=== PATIENT | female | born 1935 | race Two or more races ===

== ENCOUNTER 2017-12-15 12:35 | Emergency (ER) | payer MEDICARE, OTHER ==
[~2017-12-15] VITALS: Ht 160 cm; Wt 65.8 kg
[~2017-12-15 12:35] MED LIST: GLYB1TAB2 PO; INSU100V7 SQ; LORA1TAB PO; METO50TA7 PO; NIFE30TA PO; VALS160T2 PO
--- NOTE | 2017-12-15 12:50 | NUR ---
BB FAMILY FOR RT UPPER QUADRANT ABD PAIN X 3 DAYS, NAUSEA, NAD NOTED, VSS, RESP EVEN AND UNLABORED, PT PUT ON HOSPITAL GOWN AND MONITOR. WAITING FOR MD MCDANIELS.
[2017-12-15] MEDS ORDERED: ONDANSETRON HCL/PF 4 MG/2 ML VIAL IVP ONE (13:00)
[2017-12-15] MEDS ORDERED: ONDANSETRON HCL/PF 4 MG/2 ML VIAL ONE (13:16)
[2017-12-15 13:42] LABS: BASOPHILS # (AUTO) 0.1 /CMM (0.0-0.2); BASOPHILS % (AUTO) 0.5 % (0.0-2.0); EOSINOPHILS # (AUTO) 0.1 /CMM (0.0-0.7); EOSINOPHILS % (AUTO) 0.8 % (0.0-6.0); HEMATOCRIT 42 % (33-45); HEMOGLOBIN 14.8 g/dL (11.5-14.8); LYMPHOCYTES # (AUTO) 1.7 /CMM (0.8-4.8); LYMPHOCYTES % (AUTO) 16.8 % (20.0-44.0); MEAN CORPUSCULAR HEMOGLOBIN 30 PG (26.0-33.0); MEAN CORPUSCULAR HGB CONC 35 g/dl (31.0-36.0); MEAN CORPUSCULAR VOLUME 84 fL (82-100); MONOCYTES # (AUTO) 0.6 /CMM (0.1-1.30); MONOCYTES % (AUTO) 6.2 % (2.0-12.0); NEUTROPHILS # (AUTO) 7.8 /CMM (1.8-8.9); NEUTROPHILS % (AUTO) 75.7 % (43.0-81.0); PLATELET COUNT (AUTO) 448 /CMM (150-450); RDW COEFFICIENT OF VARIATION 11.3 (11.5-15.0); RED BLOOD CELL COUNT(AUTO) 5.01 MIL/uL (4.0-5.2); WHITE BLOOD COUNT (AUTO) 10.3 K/uL (4.3-11.0)
[2017-12-15] MEDS ORDERED: MORPHINE SULFATE INJ 4 MG/ML DISP.SYRIN ONE (13:43)
[2017-12-15 13:50] LABS: CALCIUM, SERUM 9.6 mg/dL (8.5-10.1); CARBON DIOXIDE 27 mmol/L (21-32); CHLORIDE 90 mmol/L (98-107); CREATININE 0.7 mg/dL (0.6-1.3); GLUCOSE 206 mg/dL (74-106); SODIUM SERUM 125 mmol/L (136-145); UREA NITROGEN, BLOOD 13 mg/dL (7-18)
[2017-12-15 13:56] LABS: ALANINE AMINOTRANSFERASE 40 U/L (12-78); ALBUMIN 4.6 g/dL (3.4-5.0); ALKALINE PHOSPHATASE 72 U/L (46-116); ASPARTATE AMINOTRANSFERASE 17 U/L (15-37); BILIRUBIN,DIRECT 0.1 mg/dL (0.0-0.2); BILIRUBIN,TOTAL 0.5 mg/dL (0.2-1.0); LIPASE 160 U/L (73-393); TOTAL PROTEIN, SERUM 8.2 g/dL (6.4-8.2)
[2017-12-15 13:58] LABS: TROPONIN I < 0.017 ng/mL (0.00-0.056)
[2017-12-15] MEDS ORDERED: MORPHINE SULFATE INJ 2 MG/ML DISP.SYRIN IV ONE (14:00)
[2017-12-15 14:04] LABS: INR 0.85 (0.87-1.13)
[2017-12-15 14:08] LABS: APPEARANCE,URINE Clear (CLEAR); BILIRUBIN,URINE Negative (NEGATIVE); BLOOD, URINE Negative Ery/uL (NEGATIVE); COLOR,URINE Yellow (YELLOW); KETONES,URINE Negative (NEGATIVE); LEUKOCYTE ESTERASE ,URINE Negative (NEGATIVE); NITRITE, URINE Negative (NEGATIVE); PH,URINE 8.5 (5.0-8.0); PROTEIN,URINE 30 mg/dl (NEGATIVE); UGLUCOSE Negative (NEGATIVE); UROBILINOGEN,URINE 0.2 EU/dL (0.2)
[2017-12-15] MEDS ORDERED: IOHEXOL-300 100 ML VIAL IV ONE (14:17)
[2017-12-15] MEDS ORDERED: IV NS 0.9% 250 ML IV ONE (14:17)
[2017-12-15 14:18] LABS: BACTERIA,URINE None seen /HPF (None Seen); RBC,URINE 0-2 /HPF (0-2); SQUAMOUS EPITHELIAL CELL,UR Few /HPF (None Seen); WBC,URINE 0-2 /HPF (0-3)
[2017-12-15 16:53] VITALS: BP 115/58
--- NOTE | 2017-12-15 16:56 | NUR ---
Patient discharged to home in stable condition. Written and verbal after care instructions given. Patient verbalizes understanding of instruction.IV removed. Catheter intact and site benign. Pressure and 4x4 applied to site. No bleeding noted.
== END 2017-12-15 16:57 | disposition home or self-care (01) ==
LOC: ER 12:38
DX: R10.11 Right upper quadrant pain (principal); E87.1 Hypo-osmolality and hyponatremia; E87.8 Other disorders of electrolyte and fluid balance, not elsewhere classified; E11.9 Type 2 diabetes mellitus without complications; I10 Essential (primary) hypertension; Z79.4 Long term (current) use of insulin
CPT/HCPCS: 36415; 74160; 80048; 80076; 81001; 83605; 83690; 84484; 85025; 85730; 87040 ×2; 87086; 93005; 96374; 96375; 99285; A4606; J2270; J2405; J7050; Q9967; 81000-TC; Z7610

== ENCOUNTER 2018-02-13 21:53 | Emergency (ER) | payer MEDICARE, OTHER ==
[~2018-02-13] VITALS: Ht 152.4 cm; Wt 65.8 kg
--- NOTE | 2018-02-13 22:10 | NUR ---
TO BED 10AN 82 YO FEMALE PATIENT BIB FAMILY C/O HIGH BLOOD PRESSURE TODAY AND RUQ PAIN X 5 DAYS, +NAUSEA. PATIENT IS AAOX3, NAD NOTED. VSS. SKIN WARM AND DRY. PLACED ON TELE MONITOR. GOWNED. COMFORT MEASURES RENDERED.
--- NOTE | 2018-02-13 22:25 | NUR ---
DR BANSAL AT BEDSIDE TO EVALUATE PATIENT.
[2018-02-13] MEDS ORDERED: ONDANSETRON HCL/PF 4 MG/2 ML VIAL IVP ONE (22:30)
[2018-02-13] MEDS ORDERED: MORPHINE SULFATE INJ 2 MG/ML DISP.SYRIN IV ONE (22:30)
[2018-02-13] MEDS ORDERED: IV NS 0.9% 500 ML BAG IV ONE (22:30)
--- NOTE | 2018-02-13 22:40 | NUR ---
STARTED A SALINE LOCK ON THE LAC G20, BLOOD DRAWN AND SENT TO LAB.
[2018-02-13] MEDS ORDERED: ONDANSETRON HCL/PF 4 MG/2 ML VIAL ONE (22:42)
[2018-02-13] MEDS ORDERED: MORPHINE SULFATE INJ 4 MG/ML DISP.SYRIN ONE (22:42)
--- NOTE | 2018-02-13 22:49 | NUR ---
MEDICATED PATIENT ORDERED BY DR BANSAL.
--- NOTE | 2018-02-13 22:50 | NUR ---
ONGOING ULTRASOUND AT BEDSIDE.
[2018-02-13 23:37] LABS: BASOPHILS # (AUTO) 0.1 /CMM (0.0-0.2); BASOPHILS % (AUTO) 0.4 % (0.0-2.0); EOSINOPHILS # (AUTO) 0.1 /CMM (0.0-0.7); HEMATOCRIT 35 % (33-45); HEMOGLOBIN 12.1 g/dL (11.5-14.8); LYMPHOCYTES # (AUTO) 2.3 /CMM (0.8-4.8); LYMPHOCYTES % (AUTO) 18.6 % (20.0-44.0); MEAN CORPUSCULAR HEMOGLOBIN 29 PG (26.0-33.0); MEAN CORPUSCULAR HGB CONC 34 g/dl (31.0-36.0); MEAN CORPUSCULAR VOLUME 84 fL (82-100); MONOCYTES # (AUTO) 1.1 /CMM (0.1-1.30); MONOCYTES % (AUTO) 8.7 % (2.0-12.0); NEUTROPHILS # (AUTO) 8.7 /CMM (1.8-8.9); NEUTROPHILS % (AUTO) 71.3 % (43.0-81.0); PLATELET COUNT (AUTO) 397 /CMM (150-450); RDW COEFFICIENT OF VARIATION 11.8 (11.5-15.0); RED BLOOD CELL COUNT(AUTO) 4.19 MIL/uL (4.0-5.2); WHITE BLOOD COUNT (AUTO) 12.3 K/uL (4.3-11.0)
[2018-02-13 23:42] LABS: APPEARANCE,URINE CLEAR (CLEAR); BILIRUBIN,URINE NEGATIVE (NEGATIVE); BLOOD, URINE NEGATIVE Ery/uL (NEGATIVE); COLOR,URINE YELLOW (YELLOW); KETONES,URINE NEGATIVE (NEGATIVE); LEUKOCYTE ESTERASE ,URINE NEGATIVE (NEGATIVE); NITRITE, URINE NEGATIVE (NEGATIVE); PH,URINE 8.5 (5.0-8.0); PROTEIN,URINE 1+ mg/dl (NEGATIVE); UGLUCOSE NEGATIVE (NEGATIVE); UROBILINOGEN,URINE 0.2 EU/dL (0.2)
[2018-02-13 23:53] LABS: INR 0.89 (0.87-1.13)
[2018-02-13 23:54] LABS: BACTERIA,URINE None seen /HPF (None Seen); RBC,URINE 0-2 /HPF (0-2); SQUAMOUS EPITHELIAL CELL,UR Few /HPF (None Seen); WBC,URINE 0-2 /HPF (0-3)
[2018-02-13 23:56] LABS: TROPONIN I < 0.017 ng/mL (0.00-0.056)
[2018-02-14 00:01] LABS: CALCIUM, SERUM 8.9 mg/dL (8.5-10.1); CARBON DIOXIDE 27 mmol/L (21-32); CHLORIDE 85 mmol/L (98-107); CREATININE 0.8 mg/dL (0.6-1.3); GLUCOSE 163 mg/dL (74-106); POTASSIUM 3.9 mmol/L (3.5-5.1); SODIUM SERUM 121 mmol/L (136-145); UREA NITROGEN, BLOOD 14 mg/dL (7-18)
[2018-02-14 00:04] LABS: ALANINE AMINOTRANSFERASE 32 U/L (12-78); ALBUMIN 3.9 g/dL (3.4-5.0); ALKALINE PHOSPHATASE 56 U/L (46-116); ASPARTATE AMINOTRANSFERASE 15 U/L (15-37); BILIRUBIN,DIRECT 0.1 mg/dL (0.0-0.2); BILIRUBIN,TOTAL 0.4 mg/dL (0.2-1.0); LIPASE 137 U/L (73-393); TOTAL PROTEIN, SERUM 6.9 g/dL (6.4-8.2)
--- NOTE | 2018-02-14 00:23 | NUR ---
IV removed. Catheter intact and site benign. Pressure and 4x4 applied to site. No bleeding noted.
--- NOTE | 2018-02-14 00:24 | NUR ---
Patient discharged to home in stable condition. Written and verbal after care instructions given. Patient verbalizes understanding of instruction. Patient is ambulatory with steady gait. Instructed patient not to drive. Patient accompanied by family. vss. nad noted. no further complaints.
[2018-02-14 00:25] VITALS: BP 128/74
== END 2018-02-14 00:25 | disposition home or self-care (01) ==
LOC: ER 21:58
DX: K80.20 Calculus of gallbladder without cholecystitis without obstruction (principal); E11.9 Type 2 diabetes mellitus without complications; E87.1 Hypo-osmolality and hyponatremia; I10 Essential (primary) hypertension; I45.10 Unspecified right bundle-branch block; K76.0 Fatty (change of) liver, not elsewhere classified; Z79.4 Long term (current) use of insulin
CPT/HCPCS: 36415; 71045-TC; 76705-TC; 80048-TC; 80076-TC; 81000-TC; 83690-TC; 84484-TC; 85025-TC; 85730-TC; A4606; J2270; J2405; J7040; Z7610

== ENCOUNTER 2018-11-07 22:14 | Inpatient (IN) | payer MEDICARE, OTHER ==
[~2018-11-07] VITALS: Ht 152.4 cm; Wt 66.4 kg
--- NOTE | 2018-11-07 22:35 | NUR ---
[id number] FROM HOME S/P GLF X 3 TODAY C/O L UPPER LEG PAIN. PATIENT D/C FROM [facility] ER TODAY W/DX OF VERTIGO. FAMILY ALSO STATES PT SEEMS ALTERED. AOX3, VSS, RESPIRATIONS EVEN AND UNLABORED. DENIES SOB, DIZZINESS, WEAKNESS. UNABLE TO DESCRIBE PAIN, ABLE TO MOVE LEG AROUND WITHOUT DIFFICULTY. NO OTHER COMPLAINTS AT THIS TIME. READY FOR EVAL.
--- NOTE | 2018-11-07 22:45 | NUR ---
XRAY AND CT COMPLETED
[2018-11-07 22:52] LABS: BASOPHILS % (AUTO) 0.2 % (0.0-2.0); EOSINOPHILS % (AUTO) 0.3 % (0.0-6.0); HEMATOCRIT 39 % (33-45); HEMOGLOBIN 13.1 g/dL (11.5-14.8); LYMPHOCYTES # (AUTO) 1.2 /CMM (0.8-4.8); MEAN CORPUSCULAR HGB CONC 33 g/dl (31.0-36.0); MEAN CORPUSCULAR VOLUME 85 fL (82-100); MONOCYTES # (AUTO) 1.1 /CMM (0.1-1.30); MONOCYTES % (AUTO) 6.2 % (2.0-12.0); NEUTROPHILS # (AUTO) 14.9 /CMM (1.8-8.9); NEUTROPHILS % (AUTO) 86.3 % (43.0-81.0); PLATELET COUNT (AUTO) 337 /CMM (150-450); RED BLOOD CELL COUNT(AUTO) 4.64 MIL/uL (4.0-5.2); WHITE BLOOD COUNT (AUTO) 17.3 K/uL (4.3-11.0)
[2018-11-07 23:02] LABS: CALCIUM, SERUM 8.7 mg/dL (8.5-10.1); CARBON DIOXIDE 30 mmol/L (21-32); CHLORIDE 93 mmol/L (98-107); GLUCOSE 223 mg/dL (74-106); POTASSIUM 3.6 mmol/L (3.5-5.1); SODIUM SERUM 133 mmol/L (136-145)
[2018-11-07 23:20] LABS: UREA NITROGEN, BLOOD 12 mg/dL (7-18)
--- NOTE | 2018-11-07 23:25 | NUR ---
URINE COLLECTED AND SENT TO LAB
[2018-11-07 23:37] LABS: APPEARANCE,URINE CLEAR (CLEAR); BILIRUBIN,URINE NEGATIVE (NEGATIVE); BLOOD, URINE NEGATIVE Ery/uL (NEGATIVE); COLOR,URINE YELLOW (YELLOW); KETONES,URINE NEGATIVE (NEGATIVE); LEUKOCYTE ESTERASE ,URINE TRACE (NEGATIVE); NITRITE, URINE NEGATIVE (NEGATIVE); PH,URINE 7.5 (5.0-8.0); PROTEIN,URINE 2+ mg/dl (NEGATIVE); UGLUCOSE 1+ mg/dL (NEGATIVE); UROBILINOGEN,URINE 0.2 EU/dL (0.2)
[2018-11-07] MEDS ORDERED: ERGO500040 PO (23:51)
[2018-11-07] MEDS ORDERED: AMYL1CAP58 PO (23:51)
[2018-11-07] MEDS ORDERED: ATOR40TA PO (23:51)
[2018-11-07] MEDS ORDERED: LOSA25TA27 PO (23:51)
[2018-11-07] MEDS ORDERED: ONDA4TAB5 PO (23:51)
[2018-11-07] MEDS ORDERED: HYDR-4076 PO (23:51)
[2018-11-07] MEDS ORDERED: MAGN400T6 PO (23:51)
[2018-11-07] MEDS ORDERED: NITR0.4T48 SL (23:51)
[2018-11-07] MEDS ORDERED: RANO500T3 PO (23:51)
[2018-11-07] MEDS ORDERED: ASPI-1169 PO (23:51)
[2018-11-07] MEDS ORDERED: CLOP75TA15 PO (23:51)
[2018-11-07] MEDS ORDERED: PANT40TA4 PO (23:51)
[2018-11-07] MEDS ORDERED: ISOS60TA4 PO (23:51)
[2018-11-07 23:52] LABS: BACTERIA,URINE None seen /HPF (None Seen); RBC,URINE 0-2 /HPF (0-2); WBC,URINE 0-2 /HPF (0-3)
[2018-11-07 23:53] LABS: SQUAMOUS EPITHELIAL CELL,UR Few /HPF (None Seen)
--- NOTE | 2018-11-08 00:03 | NUR ---
Patient is resting comfortably in bed WITH FAMILY AT BEDSIDE. Easily aroused. VSS
[2018-11-08] MEDS ORDERED: MECLIZINE HCL 25 MG TABLET ONE (00:29)
[2018-11-08] MEDS ORDERED: ONDANSETRON HCL/PF 4 MG/2 ML VIAL IVP PRN (00:30)
[2018-11-08] MEDS ORDERED: Z GUARD REMEDY 2 OZ OINT TP PRN (00:30)
[2018-11-08] MEDS ORDERED: MAGNESIUM HYDROXIDE 30 ML UDC PO PRN (00:30)
[2018-11-08] MEDS ORDERED: ACETAMINOPHEN 325 MG TABLET PO PRN (00:30)
[2018-11-08] MEDS ORDERED: IV NS 0.9% 500 ML BAG IV ONE (00:30)
[2018-11-08] MEDS ORDERED: MAG HYDROX/AL HYDROX/SIMETH 30 ML UDC PO PRN (00:30)
[2018-11-08] MEDS ORDERED: MECLIZINE HCL 12.5 MG TABLET PO ONE (00:30)
[2018-11-08] MEDS ORDERED: INSULIN REGULAR, HUMAN 100 UNIT/ML 3 ML VIAL SQ PRN ×4 (01:00→07:30)
[2018-11-08] MEDS ORDERED: DEXTROSE 50%-WATER 50 ML DISP.SYRIN IV PRN ×3 (01:00→07:30)
--- NOTE | 2018-11-08 01:11 | NUR ---
REPORT GIVEN TO JANE MURPHY FOR BED 102
[2018-11-08 01:20] VITALS: BP 123/59
--- NOTE | 2018-11-08 01:25 | NUR ---
PT TRANSFERRED TO [facility]
--- NOTE | 2018-11-08 01:35 | NUR ---
[facility] RN NOTE ADMITTED 82 YEARS OLD FEMALE PT FROM ER WITH THE DX OF SYNCOPE SECONDRY TO UTI BY WASTE OIL PUMPER LAILA. PT IS A/O X 1, CONFUSED. IRANIAN SPEAKING. NO SOB, NO DISTRESS OR DISCOMFORT NOTED. DENIES PAIN. SKIN ASSESSMENT DONE. ON TELE SR HR 82. PICTURES TAKEN AND PLACE THEM IN THE CHART. FAMILY AT BED SIDE. RAC SL # 20 G INTACT AND PATENT. SIDE RAILS UP X 2 AND CALL LIGHT WITHIN REACH. VSS. CONTINUE TO MONITOR HER.
--- NOTE | 2018-11-08 01:40 | NUR ---
[facility] RN NOTE PER DTR PT IS HALLUCINATING AT TIME. ACCORDING TO DTR, PT IS SEEING PEOPLE AND ANIMALS.
[2018-11-08] MEDS ORDERED: CEFTRIAXONE 1 G VIAL ONE ×2 (02:14→02:16)
[2018-11-08] MEDS: CEFTRIAXONE 2 G in IV NS 0.9% 100 ML IV SCH ×2 (02:24→23:49)
[2018-11-08] MEDS: IV NS 0.9% 1,000 ML IV PRN ×2 (02:25→21:06)
[2018-11-08] MEDS ORDERED: NITROGLYCERIN 0.4 MG/TAB BOTTLE SL SCH (02:30)
[2018-11-08] MEDS ORDERED: MECLIZINE HCL 12.5 MG TABLET PO PRN (02:30)
--- NOTE | 2018-11-08 02:37 | NUR ---
[facility] RN NOTE DAMI ULLOA VISITED THE PT.
[2018-11-08] MEDS ORDERED: *INSULIN REGULAR(HUMULIN R)HUM 100 UNIT/ML VIAL SQ PRN (03:00)
[2018-11-08 04:00] VITALS: BP 108/66
--- NOTE | 2018-11-08 04:51 | NUR ---
[facility] RN NOTE PT IN BED VOMITING X 1 GREENISH COLOR SMALL AMOUNT FOR SECRETIONS NOTED. ZOFRAN 4 MG IVP GIVEN FOR N/V. CONTINUE TO MONITOR HER.
[2018-11-08] MEDS ORDERED: MECLIZINE HCL 12.5 MG TABLET PO SCH (05:00)
--- NOTE | 2018-11-08 05:18 | NUR ---
[facility] RN NOTE PT IN BED RESTLESS AND KEPT ON TRY TO CLIMB OUT OF BED. UNABLE TO FOLLOW SAFETY DIRECTIONS. PT IS HIGHLY RISK FOR FALL. DAMI ULLOA CALLED AND RECEIVED A NEW ORDER OF BILATERAL SOFT WRIST RESTRAINT.
--- NOTE | 2018-11-08 05:33 | NUR ---
[facility] RN NOTE REMINDED PHYSICIAN GENERAL PRACTICE PT ON TELE MONITOR SHOWS SR WITH BBB AND ST DEPRESSION, PHYSICIAN GENERAL PRACTICE GAVE NEW ORDER OF STAT EKG AND TROP, WILL FOLLOW UP WITH THE RESULT.
--- NOTE | 2018-11-08 06:00 | NUR ---
[facility] RN NOTE PT IS KICKING THE STAFF AND ALSO TRYING TO SCRATCH.
--- NOTE | 2018-11-08 06:13 | NUR ---
[facility] RN NOTE STAT EKG RESULT GIVEN TO DAMI ULLOA BUT SHE IS ALSO WANT TO KNOW TROPONIN RESULT. WAITING FOR TROPONIN RESULT.
--- NOTE | 2018-11-08 06:20 | NUR ---
[facility] RN NOTE PT IS VERY RESTLESS, PER DTR PT FAINTED AND THEM WAKE UP. PT REMAIN TRYING TO OPEN RESTRAINTS. INFORMED DAMI ULLOA. PER INDUSTRIAL WORKERS LAILA SHE INFORMED DR BROWNE AND ALSO WAITING FOR TROPONIN RESULT. CHARGE NURSE ALSO AWARE OF THE PT CONDITION. WILL RELAY THE TROP LEVEL JUAN AND WILL ENDORSE TO DAY SHIFT NURSE FOR CONTINUE TO MONITOR PT'S CONDITION CLOSELY.
[2018-11-08] MEDS ORDERED: INSULIN GLARGINE HUM REC ANLOG 100 UNIT SQ SCH (07:00)
[2018-11-08] MEDS: ASPIRIN 325 MG TABLET PO SCH ×2 (07:30→08:00)
[2018-11-08] MEDS: ONDANSETRON 4 MG TAB.RAPDIS PO SCH ×4 (07:30→23:49)
[2018-11-08] MEDS ORDERED: BLOOD SUGAR DIAGNOSTIC 1 EACH STRIP VI SCH (07:30)
[2018-11-08] MEDS ORDERED: BLOOD SUGAR DIAGNOSTIC 1 EACH STRIP IN SCH (07:30)
[2018-11-08] MEDS: PANTOPRAZOLE 40 MG TABLET.DR PO SCH (07:30)
--- NOTE | 2018-11-08 07:30 | NUR ---
[facility] RN NOTE: RECEIVED PATIENT IN BED AWAKE, CONFUSED AND VERY RESTLESS. GRANDDAUGHTER PRESENT AT THE BEDSIDE. PATIENT ATTACHED ON GENERAL INTERNAL MEDICINE DOCTOR ST WITH BBB HR= 102. RESPIRATION EVEN AND UNLABORED SATURATING 91% WITH OXYGEN 2L/MIN VIA NC SATURATING 91%. PATIENT KEPT MOVING ON THE BED NOTED WITH (B) SOFT WRIST RESTRAINTS BECAUSE PATIENT WAS TRYING TO GET OUT OF BED AND WAS KICKING HER LEGS UP IN THE AIR. PATIENT'S HOB WAS ON FLAT POSITION PER FAMILY'S REQUEST TO CALM THE PATIENT. (R) AC IV SITE NOTED PATENT INFUSING NS @75ML/HR. PER GRANDDAUGHTER, "I DON'T KNOW WHAT HAPPENED TO HER. SHE WAS MOVING NONSTOP SINCE LAST NIGHT." BED ALARMED AND LOCKED AT ALL TIMES. PADDED SIDERAILS WERE PLACED FOR PROTECTION AND SAFETY. CALL LIGHT WITHIN REACH. NEEDS ANTICIPATED.
--- NOTE | 2018-11-08 07:45 | NUR ---
[facility] RN NOTE: REINALDO, GRANDDAUGHTER VERBALIZED "IF I DO NOT SEE ANY DOCTOR IN 1 HOUR TO SEE MY GRANDMOTHER I WILL COME OUT OF THIS ROOM AND WILL START YELLING OUTSIDE. MY GRANDMOTHER HAS BEEN AGITATED SINCE THE MOMENT WE CAME TO THE ROOM AND NOTHING HAS BEEN DONE. SHE HAS NOT SLEEP FOR 2 DAYS NOW." ASSURED THE GRANDDAUGHTER THAT THE [facility] DOCTOR ASSIGNED TO THE PATIENT WILL BE CONTACTED.
[2018-11-08 08:00] VITALS: BP_SYST 126; BP_SYST 134; BP_DIAS 61; BP_DIAS 83
[2018-11-08] MEDS: DOCUSATE SODIUM 100 MG CAPSULE PO SCH ×2 (08:00→17:00)
[2018-11-08] MEDS: NIFEdipine XL (30MG) 30 MG TAB PO SCH ×2 (08:00→17:00)
[2018-11-08] MEDS: hydrALAZINE HCL 25 MG TABLET PO SCH ×2 (08:00→17:00)
[2018-11-08] MEDS: METOPROLOL SUCCINATE 50 MG TAB.SR.24H PO SCH ×2 (08:00→17:00)
[2018-11-08] MEDS: VALSARTAN 80 MG TABLET PO SCH ×2 (08:00→17:00)
[2018-11-08] MEDS: BLOOD SUGAR DIAGNOSTIC 1 EACH STRIP IN SCH ×4 (08:06→22:06)
--- NOTE | 2018-11-08 08:36 | NUR ---
[facility] RN NOTE: SEEN BY DR. HERNANDEZ AND MADE HIM AWARE THAT THE GRANDDAUGHTER WAS PRESENT AT THE BEDSIDE AND HAS BEEN REQUESTING TO SEE A DOCTOR REGARDING HER GRANDMOTHER'S CONDITION. PATIENT WAS VERY RESTLESS AND CONFUSED. PER DR. HERNANDEZ, OK TO GIVE ATIVAN 1MG IVP X1. ORDER, NOTED AND CARRIED OUT. GRANDDAUGHTER AWARE.
[2018-11-08] MEDS ORDERED: MAGNESIUM OXIDE 400 MG TABLET PO SCH (09:00)
[2018-11-08] MEDS ORDERED: LOSARTAN POTASSIUM 25 MG TABLET PO SCH (09:00)
[2018-11-08] MEDS ORDERED: ATORVASTATIN 40 MG TABLET PO SCH (09:00)
[2018-11-08] MEDS ORDERED: ISOSORBIDE MONONITRATE 20 MG TABLET PO SCH (09:00)
[2018-11-08] MEDS ORDERED: LORAZEPAM INJ 2 MG/ML VIAL IV ONE (09:00)
[2018-11-08] MEDS ORDERED: PANTOPRAZOLE 40 MG TABLET.DR PO SCH (09:00)
--- NOTE | 2018-11-08 09:00 | NUR ---
[facility] RN NOTE: PATIENT WAS NOTED CALM AND QUIET AT THIS TIME. ASLEEP, BUT WAS STILL MOVING HER LEGS. DR. BROWNE, ARMORED CAR DRIVER CAME TO THE UNIT AND WAS INFORMED THAT THE PATIENT WAS GIVEN ATIVAN PER GRANDDAUGHTER, REINALDO'S REQUEST DUE TO THE PATIENT'S AGGRESSIVE BEHAVIOR.
[2018-11-08 12:00] VITALS: BP 137/70
--- NOTE | 2018-11-08 12:00 | NUR ---
[facility] RN NOTE: PATIENT WAS NOT HAVING ANY NAUSEA/VOMITING EPISODE AND SHE WAS ASLEEP. ZOFRAN ODT WAS NOT ADMINISTERED. DR. MCGOWAN AWARE THAT NO PO MEDICATION WAS GIVEN SINCE THIS MORNING.
--- NOTE | 2018-11-08 12:13 | NUR ---
[facility] RN NOTE: DR. MONTEZ, PSYCHIATRIST CAME IN THE UNIT AND ASSESSED THE PATIENT. PATIENT WAS CALM AND QUIET AT THIS TIME. FAMILY REMAINED PRESENT AT THE BEDSIDE. PER DR. MONTEZ, SHE WILL WRITE ORDER FOR THE PATIENT AND MD DISCUSSED THE PLANNED MEDICATION ORDER FOR THE PATIENT AND PER MD THE FAMILY AGREED TO IT.
--- NOTE | 2018-11-08 12:30 | NUR ---
[facility] RN NOTE: CALLED AND PAGED DAMI HANCOCK OF DR. EPPERSON RE: THE CONSULT FOR THE PATIENT. PER ACCOUNT MANAGER RELIEF, DR. EPPERSON WILL COME AND SEE THE PATIENT BY TOMORROW TO DO THE INITIAL ASSESSMENT.
--- NOTE | 2018-11-08 12:40 | NUR ---
[facility] RN NOTE: DR. ERIC MCGOWAN PRESENT AT THE BEDSIDE AND MADE HIM AWARE ABOUT THE PATIENT'S CONDITION THIS MORNING. MD ASSESSED THE PATIENT AND PATIENT WAS CALM AT THIS TIME DUE TO THE ATIVAN ADMINISTRATION THIS MORNING. NO FAMILY MEMBER PRESENT AT THE BEDSIDE RIGHT NOW. MD WITH NO NEW ORDER AT THIS TIME.
[2018-11-08] MEDS: risperiDONE-M 0.5 MG TAB.RAPDIS PO PRN ×2 (14:57→16:13)
[2018-11-08 16:00] VITALS: BP 132/81
--- NOTE | 2018-11-08 16:14 | NUR ---
[facility] RN NOTE: PATIENT WAS AWAKE NOW AND LESS AGITATED. THIS TIME, SHE WAS SPEAKING MORE CLEAR NOW AND GRANDDAUGHTER, REINALDO WAS SAYING THAT SHE WAS MORE COOPERATIVE AT THIS TIME. (B) SOFT WRIST RESTRAINTS WERE REMOVED AND PATIENT WAS NOTED CALM AND QUIET. PATIENT WAS NOTED WITH EPISODES OF BEING AGITATED, GRANDDAUGHTER REINALDO REQUESTED FOR THE RISPERDAL-M TO BE GIVEN TO PREVENT THE ESCALATION OF THE PATIENT'S BEHAVIOR. PATIENT REFUSED TO TAKE IT AND SPIT IT OUT. DR. MONTEZ WAS MADE AWARE.
--- NOTE | 2018-11-08 17:36 | NUR ---
[facility] RN NOTE: PATIENT REFUSED TO TAKE HER PO MEDICATIONS. PATIENT REMAINED CALM AND QUIET AT THIS TIME. WILL CONTINUE TO MONITOR THE PATIENT'S BEHAVIOR AND WILL UPDATE DR. MCGOWAN ABOUT IT. (B) SOFT WRIST RESTRAINTS WERE STILL RELEASED AT THIS TIME. THE GRANDDAUGHTER, REINALDO REMAINED PRESENT AT THE BEDSIDE.
--- NOTE | 2018-11-08 17:50 | NUR ---
[facility] RN NOTE: OFFERED TO THE GRANDDAUGHTER, REINALDO IF IT'S OK TO CHECK HER GRANDMOTHER'S DIAPER IF SHE URINATED AND TO REPOSITION THE PATIENT. PER REINALDO, "LET HER GET SOME REST AND SLEEP FOR NOW." PATIENT WAS ASLEEP AND CALMLY RESTING IN THE BED.
--- NOTE | 2018-11-08 18:04 | NUR ---
[facility] RN NOTE: SPOKE WITH DR. MONTEZ REGARDING THE CONCERN OF REINALDO, GRANDDAUGHTER TO GET AN ORDER FOR A PRN MEDICATION IN CASE THE PATIENT WILL HAVE ANOTHER EPISODE OF SEVERE AGITATION BESIDES THE SUBLINGUAL MEDICATION. WITH ORDER FOR ZYPREXA 2.5MG IM DAILY PRN FOR SEVERE AGITATION IF THE RISPERDAL-M SL IS INEFFECTIVE. REINALDO, GRANDDAUGHTER WAS MADE AWARE AND WAS THANKFUL FOR THE UPDATE.
--- NOTE | 2018-11-08 19:45 | NUR ---
[facility] RN NOTE: REPORT GIVEN TO PM SHIFT NURSE FOR CONTINUITY OF CARE. PM SHIFT NURSE WAS INFORMED OF THE PRN MEDICATIONS ORDERED BY DR. MONTEZ IN CASE THE PATIENT HAS AN EPISODE OF AGITATION AGAIN. (B) SOFT WRIST RESTRAINTS WERE STILL RELEASED AT THIS TIME AND GRANDDAUGHTER, REINALDO REMAINED AT THE BEDSIDE. PATIENT WAS ASLEEP AND QUIET AT THE MOMENT.
[2018-11-08 20:00] VITALS: BP 93/67
[2018-11-08] MEDS ORDERED: OLANZAPINE 10 MG VIAL IM ONE (21:01)
[2018-11-08] MEDS: OLANZAPINE 10 MG VIAL IM PRN (21:06)
[2018-11-08] MEDS ORDERED: LORAZEPAM 1 MG TABLET PO SCH (22:00)
[2018-11-09] VITALS (44 sets, daily range): BP systolic 78–141; BP diastolic 30–97
[2018-11-09] MEDS ORDERED: ACETAMINOPHEN 650 MG/SUPP.RECT RC PRN (00:30)
[2018-11-09 00:54] LABS: CALCIUM, SERUM 7.6 mg/dL (8.5-10.1); CARBON DIOXIDE 21 mmol/L (21-32); CHLORIDE 97 mmol/L (98-107); CREATININE 2.1 mg/dL (0.6-1.3); GLUCOSE 291 mg/dL (74-106); POTASSIUM 3.8 mmol/L (3.5-5.1); SODIUM SERUM 133 mmol/L (136-145); UREA NITROGEN, BLOOD 26 mg/dL (7-18)
[2018-11-09 00:59] LABS: PHOSPHORUS 5.1 mg/dL (2.5-4.9)
[2018-11-09 01:01] LABS: MAGNESIUM 1.2 mg/dL (1.8-2.4)
[2018-11-09] MEDS: Magnesium 1GM/D5W 100ML PREMIX 100 ML IV SCH ×4 (01:47→05:03)
--- NOTE | 2018-11-09 02:28 | NUR ---
infrastructure director laci russell at bedside to assess pt and update family on plan of care. ct scan of head is done, pt has magnesium replacement ongoing. pt is still noted with irregular heart rhythm, frequent pvcs runs of vtach, bp 116/43. pt is altered, not talking to granddaughter. 2nd iv started on right hand 20g. will transfer to icu when available
--- NOTE | 2018-11-09 03:00 | NUR ---
PT TRANSFERRED TO ICU - STILL HAVING ECTOPY, PT IS NOT ALERT, ONLY MAKING INCOMPREHSIBLE NOISES, PT IS ABLE TO MOVE ALL EXTREMITIES, WILL CONTINUE TO MONITOR
[2018-11-09 03:02] LABS: BASOPHILS # (AUTO) 0.1 /CMM (0.0-0.2); BASOPHILS % (AUTO) 0.3 % (0.0-2.0); HEMATOCRIT 37 % (33-45); HEMOGLOBIN 12.1 g/dL (11.5-14.8); LYMPHOCYTES # (AUTO) 1.9 /CMM (0.8-4.8); LYMPHOCYTES % (AUTO) 10.8 % (20.0-44.0); MEAN CORPUSCULAR HGB CONC 33 g/dl (31.0-36.0); MEAN CORPUSCULAR VOLUME 86 fL (82-100); MONOCYTES # (AUTO) 1.3 /CMM (0.1-1.30); MONOCYTES % (AUTO) 7.4 % (2.0-12.0); NEUTROPHILS # (AUTO) 14.3 /CMM (1.8-8.9); NEUTROPHILS % (AUTO) 81.5 % (43.0-81.0); PLATELET COUNT (AUTO) 275 /CMM (150-450); RED BLOOD CELL COUNT(AUTO) 4.26 MIL/uL (4.0-5.2); WHITE BLOOD COUNT (AUTO) 17.6 K/uL (4.3-11.0)
[2018-11-09 03:26] LABS: ALANINE AMINOTRANSFERASE 460 U/L (12-78); ALBUMIN 3.1 g/dL (3.4-5.0); ALKALINE PHOSPHATASE 43 U/L (46-116); ASPARTATE AMINOTRANSFERASE 653 U/L (15-37); BILIRUBIN,TOTAL 0.4 mg/dL (0.2-1.0); CALCIUM, SERUM 8.4 mg/dL (8.5-10.1); CARBON DIOXIDE 22 mmol/L (21-32); CHLORIDE 99 mmol/L (98-107); CREATININE 2.4 mg/dL (0.6-1.3); GLUCOSE 314 mg/dL (74-106); MAGNESIUM 2.1 mg/dL (1.8-2.4); PHOSPHORUS 5.7 mg/dL (2.5-4.9); POTASSIUM 3.6 mmol/L (3.5-5.1); SODIUM SERUM 135 mmol/L (136-145); TOTAL PROTEIN, SERUM 6.3 g/dL (6.4-8.2); UREA NITROGEN, BLOOD 28 mg/dL (7-18)
[2018-11-09 03:30] LABS: CHOLESTEROL 134 mg/dL (<200); HDL CHOLESTEROL 66 mg/dL (40-60); LDL 55 mg/dL (0-99); THYROID STIMULATING HORMONE 1.481 uIU/mL (0.358-3.74); TRIGLYCERIDES 121 mg/dL (30-150)
[2018-11-09] MEDS ORDERED: NOREPINEPHRINE 8 MG in IV D5W 500 ML IV PRN (04:00)
--- NOTE | 2018-11-09 04:00 | NUR ---
MANUAL BP TAKEN 98/40, CORRELATING WITH LEFT FOREARM AUTOMATIC BP CUFF
[2018-11-09] MEDS: HEPARIN INFUSION/D5W 500 ML IV PRN (04:19)
--- NOTE | 2018-11-09 04:20 | NUR ---
HEPARIN DRIP STARTED PER PROTOCOL, BOLUS 5000 UNITS IV GIVEN, HEPARIN DRIP STARTED AT 1000 UNITS PER HOUR, PTT 26, WILL RECHECK PTT AT 1000.
[2018-11-09] MEDS ORDERED: DEXTROSE 50%-WATER 50 ML DISP.SYRIN IV PRN (04:30)
[2018-11-09] MEDS ORDERED: HEPARIN SODIUM, PORCINE 5000 UNITS/1 ML VIAL IV ONE (04:30)
[2018-11-09] MEDS ORDERED: VANCOMYCIN 1 GM in IV D5W 250ml IV ONE (04:30)
[2018-11-09] MEDS ORDERED: VANCOMYCIN 1 GM VIAL ONE (04:34)
[2018-11-09] MEDS: BLOOD SUGAR DIAGNOSTIC 1 EACH STRIP IN SCH ×5 (04:37→21:12)
[2018-11-09] MEDS: INSULIN REGULAR, HUMAN 100 UNIT/ML 3 ML VIAL SQ PRN ×3 (04:38→12:54)
[2018-11-09] MEDS: ONDANSETRON 4 MG TAB.RAPDIS PO SCH ×3 (06:00→17:12)
[2018-11-09] MEDS ORDERED: NOREPINEPHRINE 4 MG/4 ML AMPUL IV ONE (06:04)
[2018-11-09] MEDS ORDERED: PIPERACILLIN /TAZOBACTAM 3.375 G VIAL IV ONE (06:13)
--- NOTE | 2018-11-09 06:15 | NUR ---
SBP 70S-80S AFTER MULTIPLE RECHECKS AND MANUAL BP 78/38. WILL START LEVOPHED PER PROTOCOL
[2018-11-09] MEDS: PIPERACILLIN /TAZOBACTAM 3.375 G in IV D5W 50 ML IV SCH ×4 (06:16→23:04)
[2018-11-09] MEDS ORDERED: IV NS 0.9% 1,000 ML IV STA (06:20)
--- NOTE | 2018-11-09 07:10 | NUR ---
RN NOTES RECEIVED PT ON BED, ALERT BUT NON VERBAL , ON TELE SR HR IN 70'S AT THIS TIME, HEPARIN GTT @1000U/HR AND LEVO AT 2MCG/MIN RUNNING VIA R AC IV SITE G 20, NS AT AT 75CC/HR RUNNING VIA R WIRST G 20 , SITES CLEAN, DRY AND INTACT, SUPPORTIVE FAMILY AT THE BEDSIDE, SR UP x4, CALL LIGHT WITHIN EASY REACH, BED LOCKED AND IN LOWEST POSITION , CONTINUE TO MONITOR.
[2018-11-09] MEDS ORDERED: FEE PK DOSING 1 MIN EA MC ONE (08:36)
[2018-11-09 08:38] LABS: BILIRUBIN,DIRECT 0.1 mg/dL (0.0-0.2)
[2018-11-09] MEDS: hydrALAZINE HCL 25 MG TABLET PO SCH ×2 (09:00→16:32)
[2018-11-09] MEDS: ASPIRIN 325 MG TABLET PO SCH (09:02)
[2018-11-09] MEDS: DOCUSATE SODIUM 100 MG CAPSULE PO SCH ×2 (09:02→16:34)
[2018-11-09] MEDS: PANTOPRAZOLE 40 MG TABLET.DR PO SCH (09:03)
--- NOTE | 2018-11-09 09:53 | NUR ---
WOUND CARE CONSULT: PT PRESENTS WITH BRUISING TO LEFT FOOT, DRY ABRASION TO LEFT ARM AND ULCER TO RT PLANTAR FOOT, PRESENT ON ADMISSION. RECOMMEND DPM CONSULT. ALL SKIN PROTECTION RECOMMENDATIONS DISCUSSED WITH NURSING STAFF. PT ON ALIDA ISOFLEX LOW AIRLOSS BED. WILL SEE PRN. GANN IN AGREEMENT WITH PLAN OF CARE. CURRENT NELSON SCORE IS 16. Addendum: 11/09/18 at 0955 by RUSTAM COSBY WNDNU Amended: Links added.
[2018-11-09] MEDS ORDERED: LORAZEPAM 1 MG TABLET PO PRN (10:30)
[2018-11-09 12:46] LABS: ABG BASE EXCESS -6.7 mmol/L; ABG OXYGEN SATURATION 92.4 % (92.0-98.5); ABG PCO2 29.1 mmHg (35.0-45.0); ABG PH 7.387 (7.350-7.450); ABG PO2 75.8 mmHg (75.0-100.0); AaDO2 204.8 mmHg; COHb 0.1 % (0.5-1.5); MetHb 0.3 % (0.0-1.5); SITE, ABG Right Radial; VENT MODE, BG Nasal Cannula
--- NOTE | 2018-11-09 13:00 | NUR ---
RN NOTES DR BROWNE NOTIFED REGRADING TROPONIN 46.226 , NO NEW ORDER RECEIVED , CONTINUE TO MONITOR .
--- NOTE | 2018-11-09 13:10 | NUR ---
RN NOTES DR MCGOWAN NOTIFED REGARDING LA 2.6 AND TROPONIN OF 46.226 , NO NEW ORDER RECEIVED, PT STABLE , CONTINUE TO MONITOR .
[2018-11-09 13:52] LABS: BASOPHILS # (AUTO) 0.1 /CMM (0.0-0.2); BASOPHILS % (AUTO) 0.4 % (0.0-2.0); EOSINOPHILS % (AUTO) 0.3 % (0.0-6.0); HEMATOCRIT 34 % (33-45); HEMOGLOBIN 11.5 g/dL (11.5-14.8); LYMPHOCYTES # (AUTO) 1.9 /CMM (0.8-4.8); LYMPHOCYTES % (AUTO) 10.7 % (20.0-44.0); MEAN CORPUSCULAR HGB CONC 34 g/dl (31.0-36.0); MEAN CORPUSCULAR VOLUME 85 fL (82-100); MONOCYTES % (AUTO) 5.5 % (2.0-12.0); NEUTROPHILS # (AUTO) 14.6 /CMM (1.8-8.9); NEUTROPHILS % (AUTO) 83.1 % (43.0-81.0); PLATELET COUNT (AUTO) 243 /CMM (150-450); RED BLOOD CELL COUNT(AUTO) 4.02 MIL/uL (4.0-5.2); WHITE BLOOD COUNT (AUTO) 17.6 K/uL (4.3-11.0)
--- NOTE | 2018-11-09 14:00 | NUR ---
RN NOTES DR MCGOWAN NOTIFED REGARDING NA 133 AND K= 3.1 , NO NEW ORDER RECEIVED .
[2018-11-09 14:09] LABS: ALANINE AMINOTRANSFERASE 432 U/L (12-78); ALBUMIN 2.8 g/dL (3.4-5.0); ALKALINE PHOSPHATASE 44 U/L (46-116); ASPARTATE AMINOTRANSFERASE 569 U/L (15-37); BILIRUBIN,TOTAL 0.5 mg/dL (0.2-1.0); CALCIUM, SERUM 7.6 mg/dL (8.5-10.1); CARBON DIOXIDE 21 mmol/L (21-32); CHLORIDE 98 mmol/L (98-107); CREATININE 1.9 mg/dL (0.6-1.3); GLUCOSE 207 mg/dL (74-106); MAGNESIUM 2.5 mg/dL (1.8-2.4); PHOSPHORUS 4.1 mg/dL (2.5-4.9); POTASSIUM 3.1 mmol/L (3.5-5.1); SODIUM SERUM 133 mmol/L (136-145); TOTAL PROTEIN, SERUM 5.9 g/dL (6.4-8.2); UREA NITROGEN, BLOOD 30 mg/dL (7-18)
[2018-11-09] MEDS: risperiDONE-M 0.5 MG TAB.RAPDIS PO PRN ×2 (15:42→21:37)
[2018-11-09] MEDS ORDERED: ALBUTEROL HALF STRENGTH 1.25 MG/3 ML VIAL.NEB NEB PRN (16:00)
[2018-11-09] MEDS ORDERED: FUROSEMIDE 20 MG/2 ML VIAL IV ONE (16:00)
--- NOTE | 2018-11-09 16:00 | NUR ---
RN NOTES MEDICAL RECORD OBTAINED FROM [facility] AND PLACED IN THE CHART PER MD ORDER .
--- NOTE | 2018-11-09 16:00 | NUR ---
RN NOTES PT C/O SOB , O2 SAT 92% , DR LOPEZ NOTIFED, NEW ORDER RECEIVED FOR BREATHING TX .
--- NOTE | 2018-11-09 17:00 | NUR ---
RN NOTES PT AT REST , NO DISTRESS NOTED, RESPIRATION EVEN AND UNLABORED, O2 SAT 93%, CONTINUE TO MONITOR.
--- NOTE | 2018-11-09 18:45 | NUR ---
RN NOTES PT AT REST , SUPPORTIVE FAMILY AT THE BEDSIDE, HEPARIN GTT AT 1000U/HR RUNNING VIA R AC IV SITE, NO DISTESS NOTED, WILL ENDOSE TO ADVERTISING ASSISTANT MANAGER NURSE FOR CONTINUITY OF CARE .
--- NOTE | 2018-11-09 19:30 | NUR ---
RN/NOTES: RECEIVED PT. IN BED W/ HOB ELEVATED. W/ O2 @ 6LPM VIA N/C SAT 93%. PT. N/C OUT OF THE NOSE. PT. HAS A TENDENCY TO PULL OUT HER N/C. REINSERTED BACK THE N/C. PT. SPEAKS CANADIAN. NO S/S OF ANY RESPIRATORY DISTRESS. NO FACIAL GRIMACES OR MOANING NOTED. W/ IVF ON RAC G 20 PATENT AND INTACT W/ NO S/S OF INFECTION/INFILTRATION NOTED. INCONTINENT OF B/B. RT. FOOT DRESSING INTACT AND ELEVATED ON PILLOWS. W/ HEPARIN DRIP W/ 1000 UNITS/HR /20 CC/HR. CALL LIGHT W/REACH. WILL CONTINUE TO MONITOR.
[2018-11-09] MEDS: IV NS 0.9% 1,000 ML IV PRN (19:42)
--- NOTE | 2018-11-09 20:15 | NUR ---
RN/NOTES: PT.'S GRANDDAUGHTER W/ TWO OTHER FRIENDS CAME IN. FRIENDS GOT PISSED OFF AT THE PARLIAMENTARY ARCHIVIST SAYING THAT PT. IS CALLING FOR HELP AND NO BODY IS COMING. CHARGE NURSE WENT AND SPOKE TO PT. PUBLIC HEALTH TECHNOLOGIST WENT IN AND EXPLAINED TO THE FRIENDS AND FAMILY THAT WE WERE THERE. AND PT. DID NOT CALL WITH THE CALL LIGHT. PT. IS [place] SPEAKING AND PUBLIC HEALTH TECHNOLOGIST DID NOT UNDERSTAND. PT. GRANDDAUGHTER STAYING W/ PT. PT. IS ALERT AND ORIENTED X 2-3 IN [place] LANGUAGE. PT. RECOGNIZES FAMILY AND HAVING CONVERSATION. WILL CONTINUE TO MONITOR.
[2018-11-09] MEDS: DOXYCYCLINE 100 MG in IV NS 0.9% 100 ML IV SCH (20:49)
[2018-11-09] MEDS: HYDROCODONE/APAP 5/325MG 1 EACH TABLET PO PRN (20:49)
--- NOTE | 2018-11-09 20:50 | NUR ---
RN/NOTES: PER GRAND DAUGHTER PT. IS C/O PAIN IN RIGHT FOOT. PRN GIVEN W/ GOOD RELIEF.
--- NOTE | 2018-11-09 21:15 | NUR ---
RN/NOTES: CHANGED PT. POSITION W/ HELP OF CHARGE NURSE.
--- NOTE | 2018-11-09 21:40 | NUR ---
RN/NOTES: PT. SEEMS AGITATED PER GRAND DAUGHTER AND WANTS SOMETHING TO RELAX HER. PRN GIVEN.
--- NOTE | 2018-11-09 23:00 | NUR ---
RN/NOTES: PT. GRAND SON BY BEDSIDE. CHANGED PT. LINEN AND DIAPER.
[2018-11-10] VITALS (27 sets, daily range): BP systolic 49–139; BP diastolic 21–94
[2018-11-10] MEDS: ONDANSETRON 4 MG TAB.RAPDIS PO SCH ×4 (00:58→18:19)
[2018-11-10] MEDS: BLOOD SUGAR DIAGNOSTIC 1 EACH STRIP IN SCH ×6 (01:06→21:16)
[2018-11-10] MEDS: INSULIN REGULAR, HUMAN 100 UNIT/ML 3 ML VIAL SQ PRN ×6 (01:07→21:27)
[2018-11-10] MEDS: HEPARIN INFUSION/D5W 500 ML IV PRN (04:11)
--- NOTE | 2018-11-10 04:20 | NUR ---
RN/NOTES: CHANGED PT. POSITION AND DIAPER. GAVE WATER.
[2018-11-10 05:09] LABS: BASOPHILS # (AUTO) 0.1 /CMM (0.0-0.2); BASOPHILS % (AUTO) 0.5 % (0.0-2.0); EOSINOPHILS % (AUTO) 0.4 % (0.0-6.0); HEMATOCRIT 34 % (33-45); LYMPHOCYTES # (AUTO) 1.6 /CMM (0.8-4.8); LYMPHOCYTES % (AUTO) 9.3 % (20.0-44.0); MEAN CORPUSCULAR HGB CONC 33 g/dl (31.0-36.0); MEAN CORPUSCULAR VOLUME 86 fL (82-100); MONOCYTES # (AUTO) 1.3 /CMM (0.1-1.30); MONOCYTES % (AUTO) 7.6 % (2.0-12.0); NEUTROPHILS # (AUTO) 13.9 /CMM (1.8-8.9); NEUTROPHILS % (AUTO) 82.2 % (43.0-81.0); PLATELET COUNT (AUTO) 246 /CMM (150-450); RED BLOOD CELL COUNT(AUTO) 3.92 MIL/uL (4.0-5.2)
[2018-11-10 05:20] LABS: CALCIUM, SERUM 7.7 mg/dL (8.5-10.1); CARBON DIOXIDE 24 mmol/L (21-32); CHLORIDE 97 mmol/L (98-107); CREATININE 1.3 mg/dL (0.6-1.3); GLUCOSE 204 mg/dL (74-106); POTASSIUM 3.2 mmol/L (3.5-5.1); SODIUM SERUM 134 mmol/L (136-145); UREA NITROGEN, BLOOD 24 mg/dL (7-18)
[2018-11-10 05:25] LABS: ALANINE AMINOTRANSFERASE 393 U/L (12-78); ALBUMIN 2.7 g/dL (3.4-5.0); ALKALINE PHOSPHATASE 47 U/L (46-116); ASPARTATE AMINOTRANSFERASE 325 U/L (15-37); BILIRUBIN,TOTAL 0.7 mg/dL (0.2-1.0); PHOSPHORUS 3.1 mg/dL (2.5-4.9); TOTAL PROTEIN, SERUM 5.8 g/dL (6.4-8.2)
[2018-11-10] MEDS: PIPERACILLIN /TAZOBACTAM 3.375 G in IV D5W 50 ML IV SCH ×3 (05:44→17:26)
[2018-11-10] MEDS: HYDROCODONE/APAP 5/325MG 1 EACH TABLET PO PRN (05:47)
--- NOTE | 2018-11-10 06:20 | NUR ---
RN/NOTES: LAB CALLED CRITICAL VALUE OF TROPONIN IS 31.526. TRENDING DOWN FROM 46.226
--- NOTE | 2018-11-10 06:30 | NUR ---
RN/ NOTES: DRESSING DONE ON RIGHT FOOT.
--- NOTE | 2018-11-10 07:30 | NUR ---
[facility] RN NOTE: RECEIVED PATIENT IN BED, AWAKE WITH INTERMITTENT CONFUSION AND VERBALLY RESPONSIVE. PATIENT WAS CALM, QUIET AND COOPERATIVE. REINALDO, GRANDDAUGHTER PRESENT AT THE BEDSIDE. HOB ELEVATED. (R) AC IV SITE WAS PATENT AND INTACT WITH HEPARIN DRIP INFUSING PER PROTOCOL. (L) FOREARM IV SITE INTACT AND PATENT. PATIENT DENIED ANY PAIN. CALL LIGHT WITHIN REACH. NEEDS ANTICIPATED.
--- NOTE | 2018-11-10 07:42 | NUR ---
RN/NOTES: REPORT GIVEN TO NEXT SHIFT NURSE FOR MAUREEN.
[2018-11-10] MEDS: FUROSEMIDE 40 MG/4 ML VIAL IV SCH ×2 (08:41→11:49)
[2018-11-10] MEDS: POTASSIUM CHLORIDE 20 MEQ TAB.PRT.SR PO SCH ×3 (08:41→10:58)
[2018-11-10] MEDS: PANTOPRAZOLE 40 MG TABLET.DR PO SCH (08:48)
[2018-11-10] MEDS: DOCUSATE SODIUM 100 MG CAPSULE PO SCH ×2 (09:00→17:00)
[2018-11-10] MEDS: hydrALAZINE HCL 25 MG TABLET PO SCH ×2 (09:00→17:00)
[2018-11-10] MEDS: ASPIRIN 325 MG TABLET PO SCH (09:42)
[2018-11-10] MEDS: DOXYCYCLINE 100 MG in IV NS 0.9% 100 ML IV SCH ×2 (09:42→21:03)
[2018-11-10] MEDS: DAKINS QUARTER STRENGTH (0.125%) 480 ML BOTTLE TOP SCH (09:54)
[2018-11-10] MEDS: NEOMY SULF/BACITRAC ZN/POLY 15 GM TUBE TP SCH (10:02)
--- NOTE | 2018-11-10 10:40 | NUR ---
[facility] RN NOTE: PATIENT WAS SEEN BY DAMI HANCOCK OF DR. EPPERSON (NEUROLOGIST) AND THE GRANDDAUGHTER REINALDO WAS ABLE TO SPEAK WITH HER. NO ORDER AT THIS TIME.
[2018-11-10] MEDS ORDERED: VANCOMYCIN 1 GM in IV D5W 250 ML IV SCH ×2 (14:00→16:00)
[2018-11-10] MEDS ORDERED: FUROSEMIDE 40 MG/4 ML VIAL IV ONE ×2 (14:30→18:00)
--- NOTE | 2018-11-10 14:36 | NUR ---
[facility] RN NOTE: CALLED AND SPOKE WITH FLORENCIO PHARMACIST AND MADE HER AWARE THAT THE PATIENT'S LASIX ORDER PER DR. LOPEZ STATED "DOSE AT 1800" AND MEDICATION WAS SCHEDULED AT 1430. PER FLORENCIO, SHE WILL FIX THE MEDICATION ORDER. CLARIFIED WITH DR. LOPEZ ABOUT HIS ORDER AND HE STATED LASIX TO BE ADMINISTER AT 1800. FLORENCIO WAS MADE AWARE.
--- NOTE | 2018-11-10 15:19 | NUR ---
[facility] RN NOTE: RECEIVED A CALL FROM LAB RE: THE TROPONIN LEVEL AND DR. MCGOWAN WAS MADE AWARE ABOUT IT. MD AWARE THAT PATIENT WAS CURRENTLY ON HEPARIN DRIP PER PROTOCOL AND PER MD PATIENT WAS OK TO TRANSFER TO [facility]. CHARGE NURSE IRENE AWARE.
--- NOTE | 2018-11-10 17:30 | NUR ---
[facility] RN NOTE: BEDSIDE REPORT WAS GIVEN TO [facility] UNDERWOOD RN AND PATIENT WAS REMAINED ON HEPARIN DRIP PER PROTOCOL. PER TIME CYCLE OPERATOR MELANIE, PATIENT WILL BE KEPT IN [facility] AND WILL FOLLOW-UP AGAIN BY TOMORROW ONCE BED IS AVAILABLE IN [place] PER PATIENT'S CLIP ON SUNGLASSES ASSEMBLER REQUEST. [facility] UDNERWOOD RN WAS ALSO MADE AWARE THAT THE PTT WAS NOT DRAWN AT 1600 BECAUSE THE RECONNAISSANCE MAN WAS UNABLE TO DRAW THE BLOOD AND WILL SEND A DIFFERENT RECONNAISSANCE MAN TO DRAW THE BLOOD. PATIENT REMAINED ON STABLE CONDITION. ALL BELONGINGS OF THE PATIENT WAS BROUGHT HOME BY HER GRANDDAUGHTER, REINALDO AND THE UPPER AND LOWER DENTURES WERE WITH THE PATIENT.
--- NOTE | 2018-11-10 18:05 | NUR ---
[facility] RN NOTE RECEIVED PATIENT AT 17:50 ACCOMPANIED BY ICU NURSES. CONNECTED TO EXTERNAL VOLUNTEER FIREFIGHTER, SINUS RHYTHM IN THE HIGH 90S AND SINUS TACHYCARDIA RANGING BETWEEN 101 AND 109 ON THE MONITOR. VITAL SIGNS STABLE, PATIENT CALM AND COOPERATIVE, MALTESE SPEAKING, FAMILY AT BEDSIDE. ON O2 VIA NASAL CANNULA AT 6LPM. NO RESPIRATORY DISTRESS NOTED. ON IV HEPARIN DRIP PER PROTOCOL, IV SITES INTACT. BED IN LOW LOCKED POSITION, ALARM ON, WILL CONTINUE TO MONITOR CLOSELY.
--- NOTE | 2018-11-10 19:26 | NUR ---
MED NOTE: ALL PINK ONCE STK MEDS REMOVED FROM PT EMAR FOR PT SAFETY.
--- NOTE | 2018-11-10 19:36 | NUR ---
[facility] RN NOTE PATIENT RESTING IN BED IN STABLE CONDITION, FAMILY AT BEDSIDE. NO CHANGES IN CONDITION SINCE RECEIVING PATIENT AT 17:50. REPORT GIVEN TO INFORMATION TECHNOLOGY PROJECT MANAGER NURSE FOR CONTINUITY OF CARE.
[2018-11-10] MEDS: risperiDONE-M 0.5 MG TAB.RAPDIS PO SCH (21:00)
[2018-11-10] MEDS: ACETAMINOPHEN 325 MG TABLET PO PRN (21:26)
[2018-11-10] MEDS ORDERED: OLANZAPINE 10 MG VIAL IM ONE (23:09)
[2018-11-10] MEDS: OLANZAPINE 10 MG VIAL IM PRN (23:15)
[2018-11-11] VITALS: BP 105/45
[2018-11-11] MEDS: PIPERACILLIN /TAZOBACTAM 3.375 G in IV D5W 50 ML IV SCH ×3 (00:05→11:35)
[2018-11-11] MEDS: BLOOD SUGAR DIAGNOSTIC 1 EACH STRIP IN SCH ×6 (01:08→21:11)
[2018-11-11] MEDS: INSULIN REGULAR, HUMAN 100 UNIT/ML 3 ML VIAL SQ PRN ×4 (01:10→17:42)
--- NOTE | 2018-11-11 01:44 | NUR ---
TELE-TD/MARKET DEVELOPMENT SPECIALIST PTT RESULT 50 NO CHANGE IN HEPARIN GTT. PTT ORDERED ROUTINE WITH AM LABS.
[2018-11-11] MEDS: HEPARIN INFUSION/D5W 500 ML IV PRN (03:17)
[2018-11-11 04:00] VITALS: BP 139/52
[2018-11-11] MEDS: ONDANSETRON 4 MG TAB.RAPDIS PO SCH ×4 (06:00→17:16)
--- NOTE | 2018-11-11 06:08 | NUR ---
TELE-TD/GAS SCRUBBER OPERATOR POC BLOOD GLUCOSE 141 PT GRANDDAUGHTER AT BEDSIDE DECLINING SS COVERAGE AT THIS TIME. RISKS AND BENEFITS EXPLAINED. WILL CONTINUE TO MONITOR.
[2018-11-11 06:51] LABS: BASOPHILS % (AUTO) 0.3 % (0.0-2.0); EOSINOPHILS % (AUTO) 1.7 % (0.0-6.0); HEMATOCRIT 33 % (33-45); LYMPHOCYTES # (AUTO) 1.4 /CMM (0.8-4.8); LYMPHOCYTES % (AUTO) 11.9 % (20.0-44.0); MEAN CORPUSCULAR HGB CONC 33 g/dl (31.0-36.0); MEAN CORPUSCULAR VOLUME 84 fL (82-100); MONOCYTES % (AUTO) 8.7 % (2.0-12.0); NEUTROPHILS # (AUTO) 9.1 /CMM (1.8-8.9); NEUTROPHILS % (AUTO) 77.4 % (43.0-81.0); PLATELET COUNT (AUTO) 276 /CMM (150-450); WHITE BLOOD COUNT (AUTO) 11.8 K/uL (4.3-11.0)
--- NOTE | 2018-11-11 06:55 | NUR ---
TELE-TD/TELEPRINTER MULTIPLE ATTEMPTS TO PLACE A SECOND IV LINE HAVE BEEN MADE. PT IS VERY HARD STICK. DR. WALTERS MADE AWARE. I WILL ENDORSE 0600 ZOSYN TO NEXT SHIFT AND RECOMMEND MIDLINE PLACEMENT. GRANDDAUGHTER AT BEDSIDE. WILL CONTINUE TO MONITOR.
[2018-11-11 07:08] LABS: ALANINE AMINOTRANSFERASE 408 U/L (12-78); ALBUMIN 2.7 g/dL (3.4-5.0); ALKALINE PHOSPHATASE 48 U/L (46-116); ASPARTATE AMINOTRANSFERASE 191 U/L (15-37); BILIRUBIN,TOTAL 0.8 mg/dL (0.2-1.0); CALCIUM, SERUM 7.6 mg/dL (8.5-10.1); CARBON DIOXIDE 28 mmol/L (21-32); CHLORIDE 97 mmol/L (98-107); CREATININE 1.2 mg/dL (0.6-1.3); GLUCOSE 126 mg/dL (74-106); MAGNESIUM 1.4 mg/dL (1.8-2.4); PHOSPHORUS 2.1 mg/dL (2.5-4.9); SODIUM SERUM 135 mmol/L (136-145); TOTAL PROTEIN, SERUM 6.1 g/dL (6.4-8.2); UREA NITROGEN, BLOOD 19 mg/dL (7-18)
[2018-11-11 07:16] LABS: POTASSIUM 2.8 mmol/L (3.5-5.1)
[2018-11-11] MEDS: PANTOPRAZOLE 40 MG TABLET.DR PO SCH (07:30)
[2018-11-11 08:00] VITALS: BP 105/87
[2018-11-11] MEDS: hydrALAZINE HCL 25 MG TABLET PO SCH ×2 (08:20→17:00)
[2018-11-11] MEDS: NEOMY SULF/BACITRAC ZN/POLY 15 GM TUBE TP SCH (08:24)
[2018-11-11] MEDS: DAKINS QUARTER STRENGTH (0.125%) 480 ML BOTTLE TOP SCH (08:24)
[2018-11-11] MEDS: DOCUSATE SODIUM 100 MG CAPSULE PO SCH ×2 (08:33→17:00)
[2018-11-11] MEDS: ASPIRIN 325 MG TABLET PO SCH (08:33)
[2018-11-11] MEDS: risperiDONE-M 0.5 MG TAB.RAPDIS PO SCH ×2 (08:34→21:00)
[2018-11-11] MEDS ORDERED: ENOXAPARIN SODIUM 40 MG/0.4 ML DISP.SYRIN SQ SCH (10:00)
[2018-11-11] MEDS ORDERED: POTASSIUM CHLORIDE 10 MEQ/50 ML PREMIXED IVPB FOR PERIPHERAL LINE IV SCH (10:00)
[2018-11-11] MEDS ORDERED: POTASSIUM CHLORIDE 20 MEQ TAB.PRT.SR PO SCH (10:00)
[2018-11-11] MEDS: DOXYCYCLINE 100 MG in IV NS 0.9% 100 ML IV SCH ×2 (10:11→21:06)
[2018-11-11] MEDS: Magnesium 1GM/D5W 100ML PREMIX 100 ML IV SCH ×2 (10:25→12:33)
[2018-11-11] MEDS: ENOXAPARIN SODIUM 30 MG/0.3 ML DISP.SYRIN SQ SCH (10:30)
[2018-11-11 12:00] VITALS: BP 115/67
[2018-11-11] MEDS: POTASSIUM CL. PREMIX PERIPHER. 50 ML IV SCH ×7 (12:35→20:15)
[2018-11-11] MEDS ORDERED: OLANZAPINE 10 MG VIAL IM PRN (13:00)
[2018-11-11] MEDS ORDERED: CEFTRIAXONE 1 G in IV D5W 50 ML IV SCH (14:00)
[2018-11-11] MEDS ORDERED: K PHOS NEUTRAL 250 MG TABLET PO ONE (15:00)
[2018-11-11] MEDS ORDERED: Sodium Phosphate 15 MMOL in IV D5W 250 ML IV ONE (15:30)
[2018-11-11 16:00] VITALS: BP 139/70
[2018-11-11] MEDS ORDERED: POTASSIUM PHOSPHATE MM 7.5 MMOL in IV D5W 100 ML IV SCH (16:00)
--- NOTE | 2018-11-11 16:00 | NUR ---
rn note potassium phosphate is not given yet due to potassium chloride is infusing at this time, pharmcay is aware and okay to postpone it and endorse to general labor forklift operator.
[2018-11-11] MEDS: FUROSEMIDE 100 MG/10 ML VIAL IV SCH ×2 (16:43→20:46)
[2018-11-11] MEDS: LACTOBACILLUS RHAMNOSUS GG 1 EACH CAP.SPRINK PO SCH (17:00)
[2018-11-11 19:14] LABS: APPEARANCE,URINE CLEAR (CLEAR); BILIRUBIN,URINE NEGATIVE (NEGATIVE); BLOOD, URINE NEGATIVE Ery/uL (NEGATIVE); COLOR,URINE YELLOW (YELLOW); KETONES,URINE NEGATIVE (NEGATIVE); LEUKOCYTE ESTERASE ,URINE NEGATIVE (NEGATIVE); NITRITE, URINE NEGATIVE (NEGATIVE); PH,URINE 5.5 (5.0-8.0); PROTEIN,URINE NEGATIVE (NEGATIVE); UGLUCOSE NEGATIVE (NEGATIVE); UROBILINOGEN,URINE 0.2 EU/dL (0.2)
[2018-11-11 20:00] VITALS: BP 133/67
--- NOTE | 2018-11-11 20:18 | NUR ---
MED NOTE: SPOKE WITH PHARM ABOUT SCHEDULING OF KCL AND KPHOS REPLACEMENT. TIMING MAY BE OFF FROM [facility]. OK BY PHARM TO MANUAL BARCODE IF NEED BE.
[2018-11-11] MEDS: POTASSIUM PHOSPHATE MM 7.5 MMOL in IV D5W 100 ML IV SCH (21:07)
--- NOTE | 2018-11-11 21:19 | NUR ---
MED NOTE: PT POC GLUCOSE 188 GRANDDAUGHTER DECLINING SS COVERAGE AT THIS TIME.
[2018-11-11] MEDS: ACETAMINOPHEN 325 MG TABLET PO PRN (23:13)
[2018-11-12] VITALS: BP 107/67
[2018-11-12] MEDS: POTASSIUM CL. PREMIX PERIPHER. 50 ML IV SCH ×3 (00:16→06:32)
[2018-11-12] MEDS: FUROSEMIDE 100 MG/10 ML VIAL IV SCH (00:19)
[2018-11-12] MEDS: BLOOD SUGAR DIAGNOSTIC 1 EACH STRIP IN SCH ×3 (00:55→11:22)
[2018-11-12] MEDS: INSULIN REGULAR, HUMAN 100 UNIT/ML 3 ML VIAL SQ PRN ×2 (01:00→06:38)
[2018-11-12] MEDS: POTASSIUM PHOSPHATE MM 7.5 MMOL in IV D5W 100 ML IV SCH (01:21)
[2018-11-12 04:00] VITALS: BP 98/39
[2018-11-12] MEDS: ONDANSETRON 4 MG TAB.RAPDIS PO SCH ×2 (06:00)
--- NOTE | 2018-11-12 06:40 | NUR ---
TELE-TD/RADAR MECHANIC PT FAMILY DECLINING ALL LAB DRAWS. THEY ANTICIPATE TRANSFER TO ANOTHER FACILITY THIS MORNING
--- NOTE | 2018-11-12 07:00 | NUR ---
PORTABLE TRACK CREW CHIEF/[facility] OPENING NOTES REPORT GIVEN BY NOC NURSE. PATIENT AWAKE IN BED A/O X3 HAITIAN SPEAKING GRAND DAUGHTER AT BEDSIDE NO SIGNS OR SYMPTOMS OF RESPIRATORY DISTRESS ON 6 LTRS N/C. C/O GENERAL DISCOMFORT TYLENOL GIVEN PER GD REQUEST. IVF TKO RUNNING IN (R) FA #20 GAUGE. POSSIBLE D/C TO [facility] PER REPORT SAFETY PRECAUTIONS IN PLACE BED IN LOW POSITION CALL LIGHT WITHIN REACH MAUREEN
[2018-11-12] MEDS: ACETAMINOPHEN 325 MG TABLET PO PRN (07:45)
[2018-11-12] MEDS: PANTOPRAZOLE 40 MG TABLET.DR PO SCH (07:45)
[2018-11-12 08:00] VITALS: BP 120/42
[2018-11-12 09:00] VITALS: BP 120/42
[2018-11-12] MEDS: risperiDONE-M 0.5 MG TAB.RAPDIS PO SCH (09:00)
[2018-11-12] MEDS: ASPIRIN 325 MG TABLET PO SCH (09:00)
[2018-11-12] MEDS: hydrALAZINE HCL 25 MG TABLET PO SCH (09:00)
[2018-11-12] MEDS ORDERED: ERGOCALCIFEROL (VITAMIN D 2) 50,000 UNIT CAPSULE PO SCH (09:00)
[2018-11-12] MEDS: LACTOBACILLUS RHAMNOSUS GG 1 EACH CAP.SPRINK PO SCH (09:00)
[2018-11-12] MEDS: DAKINS QUARTER STRENGTH (0.125%) 480 ML BOTTLE TOP SCH (09:00)
[2018-11-12] MEDS: DOXYCYCLINE 100 MG in IV NS 0.9% 100 ML IV SCH (09:00)
[2018-11-12] MEDS: DOCUSATE SODIUM 100 MG CAPSULE PO SCH (09:00)
--- NOTE | 2018-11-12 09:00 | NUR ---
RN [facility] NOTES PATIENT REFUSED LABS PER NOC SHIFT CALL ED TO GIVE REPORT TO OLIVE NICOLAS OPHTHALMIC NURSE. CANNOT TRANSFER UNTIL LABS DRAWN. ORDERED LABS STAT INFORMED FAMILY SHE CANNOT REFUSE.
[2018-11-12] MEDS: ENOXAPARIN SODIUM 30 MG/0.3 ML DISP.SYRIN SQ SCH (10:00)
--- NOTE | 2018-11-12 10:00 | NUR ---
RN [facility] NOTES EMS HERE FOR PRODUCTION TEAM LEADER WAITING FOR LAB RESULTS BEFORE TRANSPORTING PATIENT
[2018-11-12 10:42] LABS: BASOPHILS % (AUTO) 0.5 % (0.0-2.0); EOSINOPHILS % (AUTO) 2.3 % (0.0-6.0); HEMATOCRIT 36 % (33-45); HEMOGLOBIN 11.9 g/dL (11.5-14.8); LYMPHOCYTES # (AUTO) 0.9 /CMM (0.8-4.8); LYMPHOCYTES % (AUTO) 10.1 % (20.0-44.0); MEAN CORPUSCULAR HGB CONC 33 g/dl (31.0-36.0); MEAN CORPUSCULAR VOLUME 85 fL (82-100); MONOCYTES # (AUTO) 1.4 /CMM (0.1-1.30); NEUTROPHILS # (AUTO) 6.6 /CMM (1.8-8.9); NEUTROPHILS % (AUTO) 72.1 % (43.0-81.0); PLATELET COUNT (AUTO) 325 /CMM (150-450); RED BLOOD CELL COUNT(AUTO) 4.25 MIL/uL (4.0-5.2); WHITE BLOOD COUNT (AUTO) 9.1 K/uL (4.3-11.0)
[2018-11-12 10:58] LABS: ALANINE AMINOTRANSFERASE 278 U/L (12-78); ALBUMIN 2.8 g/dL (3.4-5.0); ALKALINE PHOSPHATASE 47 U/L (46-116); ASPARTATE AMINOTRANSFERASE 62 U/L (15-37); BILIRUBIN,TOTAL 0.7 mg/dL (0.2-1.0); CALCIUM, SERUM 8.3 mg/dL (8.5-10.1); CARBON DIOXIDE 29 mmol/L (21-32); CHLORIDE 99 mmol/L (98-107); CREATININE 1.1 mg/dL (0.6-1.3); GLUCOSE 210 mg/dL (74-106); MAGNESIUM 1.6 mg/dL (1.8-2.4); PHOSPHORUS 2.9 mg/dL (2.5-4.9); POTASSIUM 5.1 mmol/L (3.5-5.1); SODIUM SERUM 136 mmol/L (136-145); TOTAL PROTEIN, SERUM 6.4 g/dL (6.4-8.2); UREA NITROGEN, BLOOD 20 mg/dL (7-18)
[2018-11-12] MEDS: NEOMY SULF/BACITRAC ZN/POLY 15 GM TUBE TP SCH (11:26)
--- NOTE | 2018-11-12 11:45 | NUR ---
RN [facility]/TEL NOTES PATIENT TRANSFERED VIA GURNEY BY EMS TO ACLS PROTOCOL TO [facility]. REPORT CALLED INTO [facility] WITH CURRENT LAB RESULTS.
== END 2018-11-12 11:40 | disposition other institution (70) | DRG 871 ==
LOC: ER 22:19 → TELE-TD 11-08 00:58 → ICU 11-09 02:49 → TELE-TD 11-10 17:45
PROVIDERS: ADMIT Registered Nurse; ATTEND Nurse Practitioner Acute Care
PROC: 05HY33Z Insertion of Infusion Device into Upper Vein, Percutaneous Approach (ICD-10-PCS; principal; 2018-11-11)
DX: A41.9 Sepsis, unspecified organism (principal); I21.4 Non-ST elevation (NSTEMI) myocardial infarction; G92 Toxic encephalopathy; K72.00 Acute and subacute hepatic failure without coma; R65.21 Severe sepsis with septic shock; N17.0 Acute kidney failure with tubular necrosis; R57.0 Cardiogenic shock; J96.01 Acute respiratory failure with hypoxia; M86.9 Osteomyelitis, unspecified; N39.0 Urinary tract infection, site not specified; E87.1 Hypo-osmolality and hyponatremia; F05 Delirium due to known physiological condition; I48.92 Unspecified atrial flutter; E87.2 Acidosis; L97.409 Non-pressure chronic ulcer of unspecified heel and midfoot with unspecified severity; E11.621 Type 2 diabetes mellitus with foot ulcer; E11.69 Type 2 diabetes mellitus with other specified complication; W18.39XA Other fall on same level, initial encounter; Z91.81 History of falling; Y92.098 Other place in other non-institutional residence as the place of occurrence of the external cause; E11.65 Type 2 diabetes mellitus with hyperglycemia; I45.10 Unspecified right bundle-branch block; E78.5 Hyperlipidemia, unspecified; I25.10 Atherosclerotic heart disease of native coronary artery without angina pectoris; E66.9 Obesity, unspecified; Z68.28 Body mass index [BMI] 28.0-28.9, adult; I95.9 Hypotension, unspecified; R42 Dizziness and giddiness; R29.6 Repeated falls; E11.42 Type 2 diabetes mellitus with diabetic polyneuropathy; E11.51 Type 2 diabetes mellitus with diabetic peripheral angiopathy without gangrene; M19.90 Unspecified osteoarthritis, unspecified site; I11.9 Hypertensive heart disease without heart failure; I51.7 Cardiomegaly; Z79.82 Long term (current) use of aspirin; Z87.891 Personal history of nicotine dependence; Z96.649 Presence of unspecified artificial hip joint; G89.29 Other chronic pain; E87.6 Hypokalemia; E83.42 Hypomagnesemia
CPT/HCPCS: 36415; 36569; 36600; 70450-TC; 71045-TC; 73502; 73630-TC; 80048-TC; 80053-TC; 80061-TC; 80202-TC; 81000-TC; 82248-TC; 82962-TC; 83605-TC; 83735-TC; 84100-TC; 84443-TC; 84484-TC; 85025-TC; 85730-TC; 87040-TC; 87070-TC; 87081-TC; 87086-TC; 87400; 93307-TC; 93880-TC; A4606; A6402; A6403; A9563; G0378; J0696; J1644; J1650; J1815; J1940; J2060; J2405; J2543; J3370; J3475; J3480; J3490; J7030; J7040; J7060; J8597; Q0162; Z7610

== ENCOUNTER 2019-06-22 02:21 | Emergency (ER) | payer MEDICARE, OTHER ==
[~2019-06-22] VITALS: Ht 162.6 cm; Wt 89.8 kg
[~2019-06-22 02:21] MED LIST changes: +AMYL1CAP58 PO; +ASPI-1169 PO; +ATOR40TA PO; +CLOP75TA15 PO; +ERGO500040 PO; +HYDR-4076 PO; +ISOS60TA4 PO; +LOSA25TA27 PO; +MAGN400T6 PO; +NITR0.4T48 SL; +ONDA4TAB5 PO; +PANT40TA4 PO; +RANO500T3 PO
[2019-06-22] MEDS ORDERED: ONDANSETRON HCL/PF 4 MG/2 ML VIAL ONE (02:37)
[2019-06-22] MEDS ORDERED: ONDANSETRON 4 MG TAB.RAPDIS ONE (02:53)
[2019-06-22] MEDS ORDERED: ONDANSETRON 4 MG TAB.RAPDIS SL ONE (03:00)
[2019-06-22 03:06] LABS: APPEARANCE,URINE Clear (CLEAR); BILIRUBIN,URINE Negative (NEGATIVE); COLOR,URINE Yellow (YELLOW); KETONES,URINE Negative (NEGATIVE); LEUKOCYTE ESTERASE ,URINE Negative (NEGATIVE); NITRITE, URINE Negative (NEGATIVE)
[2019-06-22 03:36] LABS: PH,URINE 6.5 (5.0-8.0); PROTEIN,URINE 100 mg/dl (NEGATIVE)
[2019-06-22 03:37] LABS: BLOOD, URINE Negative Ery/uL (NEGATIVE); UGLUCOSE 100 MG/DL mg/dL (NEGATIVE); UROBILINOGEN,URINE 0.2 EU/dL (0.2)
[2019-06-22 04:34] LABS: BACTERIA,URINE Few /HPF (None Seen); RBC,URINE 0-2 /HPF (0-2); SQUAMOUS EPITHELIAL CELL,UR Few /HPF (None Seen)
[2019-06-22] MEDS ORDERED: LORAZEPAM 1 MG TABLET PO ONE (05:00)
[2019-06-22] MEDS ORDERED: LORAZEPAM 0.5 MG TABLET ONE (05:12)
--- NOTE | 2019-06-22 06:04 | NUR ---
Patient discharged to home in stable condition. Written and verbal after care instructions given. Patient verbalizes understanding of instruction.
[2019-06-22 06:06] VITALS: BP 125/75
== END 2019-06-22 06:07 | disposition home or self-care (01) ==
LOC: ER 02:23
DX: F41.9 Anxiety disorder, unspecified (principal); M54.9 Dorsalgia, unspecified; G89.29 Other chronic pain; E11.65 Type 2 diabetes mellitus with hyperglycemia; I48.91 Unspecified atrial fibrillation; I10 Essential (primary) hypertension; Z79.82 Long term (current) use of aspirin; Z79.4 Long term (current) use of insulin
CPT/HCPCS: 81001; 82962; 99284; J7030; Q0162; 81000-TC; J2405